=== PATIENT | male | born 1945 | race Caucasian/White ===

== ENCOUNTER 2019-03-04 21:03 | Inpatient (IN) ==
--- NOTE | 2019-03-04 23:12 | Internal Med History&Physical ---
Medical - H&P: [facility] Patient information: Note initiated : 03/04/19 at 11:09 pm Service Date, if different from initiated Date: [] Patient: Andre Vang 73 y/o M admitted on 03/04/19 for Hyperkalemia. Chief Complaint: [] Chief complaint: Elevated potassium, confusion History of present illness: Mr. Vang is a 73 year old M with history of end-stage renal disease on hemodialysis. [place] of [place] and during his office visit at primary care physician he was found to have potassium of 6.7. Patient subsequently transferred to [facility] where hyperkalemia protocol was initiated. Patient apparently missed his dialysis on Saturday citing that he was feeling well and did not think he would need dialysis. Initial work-up in the ER was consistent with elevated potassium along with blood pressure systolics in 200. Nephrology Dr. Keenan Laguna was consulted for emergent hemodialysis who recommended transferring patient to [facility] for hemodialysis. Patient was finally confused and underwent CT scan of the head which was unremarkable. Normal white count without any evidence of infection. Subsequently [facility] hospitalist was consulted for patient transfer in light of need for emergent hemodialysis. I received a verbal sign out from the ER physician at [place]. Patient was accepted and received in stable state. On arrival patient is alert oriented and able to answer most of the questions. He endorses history as above. He denies weight gain, chest palpitation, shortness of breath, fever, chills, headache or photophobia. He denies bloody stool or diarrhea. He denies changes in medications. Review of systems A 10 point review system was performed and is negative except was discussed above Medical - H&P: PMH Medical history: ESRD on hemodialysis History of congestive heart failure COPD coronary disease BPH Tobacco dependence Diabetes mellitus Hypertension Anxiety disorder Pertinent family history: Nonsignificant Social history: Lives out of [place] History of smoking No alcohol use Medical - H&P: Meds Home Medications Medication Instructions Recorded Confirmed Type Acetaminophen [Acetaminophen Extra 500 mg PO Q6H PRN 03/04/19 03/04/19 History Strength] B Complex W-C No.20/Folic Acid 1 mg PO DAILY 03/04/19 03/04/19 History [Renal Caps Softgel] Bisoprolol Fumarate 10 mg PO DAILY 03/04/19 03/04/19 History Cholecalciferol (Vitamin D3) 1,000 unit PO DAILY 03/04/19 03/04/19 History [Vitamin D] Clopidogrel Bisulfate [Plavix] 75 mg PO DAILY 03/04/19 03/04/19 History Docusate Sodium [Colace Clear] 50 mg PO BID 03/04/19 03/04/19 History Ipratropium/Albuterol [Duoneb] 3 ml NEB QID 03/04/19 03/04/19 History Metoclopramide [Reglan] 10 mg PO TIDAC 03/04/19 03/04/19 History Metoprolol Succinate [Toprol Xl] 100 mg PO DAILY 03/04/19 03/04/19 History Nebivolol HCl [Bystolic] 20 mg PO DAILY 03/04/19 03/04/19 History Nitroglycerin [Nitrostat] 0.4 mg SL Q5M PRN 03/04/19 03/04/19 History Omeprazole 40 mg PO DAILY 03/04/19 03/04/19 History Sertraline [Zoloft] 50 mg PO DAILY 03/04/19 03/04/19 History Sertraline [Zoloft] 100 mg PO DAILY 03/04/19 03/04/19 History Spironolactone [Aldactone] 25 mg PO DAILY 03/04/19 03/04/19 History Tamsulosin [Flomax] 0.4 mg PO HS 03/04/19 03/04/19 History Thioridazine HCl 25 mg PO BID 03/04/19 03/04/19 History Triamcinolone Cream 0.1% 15G 1 dose TOPICAL BID 03/04/19 03/04/19 History [Kenalog Crm 0.1%] Varenicline Tartrate [Chantix] 0.5 mg PO BID 03/04/19 03/04/19 History Varenicline Tartrate [Chantix] 1 mg PO BID 03/04/19 03/04/19 History Vitamin B Complex [Super B-50 1 each PO DAILY 03/04/19 03/04/19 History Complex] Zolpidem [Ambien] 10 mg PO HSP PRN 03/04/19 03/04/19 History tiZANidine HCL [Tizanidine HCl] 2 mg PO HS 03/04/19 03/04/19 History tiZANidine [Zanaflex] 4 mg PO HS 03/04/19 03/04/19 History Albuterol Sulfate [Albuterol 2 puff IH QIDP PRN 03/05/19 03/05/19 History Sulfate Hfa] Aspirin [Lalito Chewable Aspirin] 81 mg PO DAILY 03/05/19 03/05/19 History Atorvastatin Calcium 80 mg PO HS 03/05/19 03/05/19 History Budesonide/Formoterol Fumarate 10.2 gm IH BID 03/05/19 03/05/19 History [Symbicort 160-4.5 Mcg Inhaler] Calcium Acetate [Calphron] 667 mg PO TID 03/05/19 03/05/19 History Vit C/Vit E AC/Lut/Copper/Zinc 1 cap PO DAILY 03/05/19 03/05/19 History [Preservision Lutein Softgel] oxyCODONE HCL/ACETAMINOPHEN 1 each PO Q6HP PRN 03/05/19 03/05/19 History [Percocet 7.5-325 mg Tablet] Allergies Allergy/AdvReac Type Severity Reaction Status Date / Time No Known Drug Allergies Allergy Unverified 03/05/19 00:57 Medical - H&P: Exam - Constitutional General appearance: no acute distress Exam: Alert oriented Nonlabored breathing Head normocephalic neck no lymphadenopathy oral cavity dry No ear nose discharge Eye movement symmetrical Abdomen soft nontender S1-S2 regular rhythm diminished breath sounds bases, hemodialysis subclavian catheter right anterior chest Skin no suspicious lesion Psych alert cooperative Neuro nonfocal Medical - H&P: Reslt - Labs CBC & Chem 7: 03/05/19 04:45 03/05/19 04:45 Medical - H&P: A/P (1) Acute hyperkalemia Current visit: Yes Status: Acute * Acute hyperkalemia-potassium 6.7 status post hyperkalemia protocol. Nephrology consult for emergent hemodialysis * Hypertensive urgency with mental status change- likely exacerbated by volume overload. Will undergo emergent hemodialysis * ESRD on hemodialysis per nephrology * Acute change mental status secondary to hypertensive urgency-hemodialysis per nephrology * History of BPH continue tamsulosin * History of hypertension continue nebivolol/spironolactone/metoprolol * History of CAD continue aspirin/nitrate/nebivolol/Plavix/statin * History of COPD continue inhaled steroids * Anxiety disorder continue sertraline * GERD continue PPI * Full code * Prophylaxis heparin * Plan * Inpatient admission in light of hyperkalemia/hypertensive urgency with mental status change * emergent hemodialysis * Nephrology consult
[2019-03-04] MEDS ORDERED: ONDANSETRON 4 MG/2 ML VIAL IV PRN (23:19)
[2019-03-04] MEDS ORDERED: ACETAMINOPHEN 1,000 MG/100 ML BOTTLE IV PRN (23:19)
[2019-03-05] MEDS: 0.9 % SODIUM CHLORIDE 10 ML SYRINGE IV SCH ×3 (05:21→21:20)
[2019-03-05] MEDS ORDERED: ACETAMINOPHEN 325 MG TABLET PO ONE (05:25)
[2019-03-05] MEDS: ACETAMINOPHEN 325 MG TABLET PO PRN ×2 (05:26→19:59)
[2019-03-05 05:43] LABS: Hematocrit 36.5 % (41.0-55.0); Mean Cell Volume 88.9 fL (80.0-100.0); Mean Corpuscular HGB Conc 32.9 g/dL (31.0-36.0); Mean Platelet Volume 8.4 fL (7.4-10.4); Platelet Count 169 K/mcL (140-440); WBC 5.6 K/mcL (4.5-11.0)
[2019-03-05 07:13] LABS: ALT/SGPT 11 U/l (0-40); AST/SGOT 15 U/l (0-37); Albumin 4.2 gm/dL (3.2-5.2); Albumin/Globulin Ratio 1.9 (1.0-2.3); Alkaline Phosphatase 78 U/L (39-117); Bilirubin,Direct < 0.2 mg/dL (0.0-0.3); Bilirubin,Total 0.2 mg/dL (0.0-1.0); Blood Urea Nitrogen 23 mg/dl (8-23); Calcium 8.2 mg/dl (8.6-10.4); Carbon Dioxide 22 mmol/L (22-30); Chloride 99 mmol/L (96-108); Globulin 2.2 gm/dL (2.2-3.7); Glomerular Filtration Rate 26; Glucose 136 mg/dL (70-105); Lactate Dehydrogenase 248 U/L (94-250); Magnesium 1.9 mg/dL (1.6-2.5); Potassium 3.5 mmol/L (3.3-5.1); Sodium 138 mmol/L (133-145); Triglycerides 368 mg/dl (<150); Uric Acid 1.6 mg/dL (2.5-8.0)
[2019-03-05] MEDS ORDERED: NITROGLYCERIN 0.4 MG TAB.SUBL SL PRN (07:55)
[2019-03-05] MEDS ORDERED: ALBUTEROL SULFATE 1 PUFF INHALER IH PRN (07:55)
[2019-03-05] MEDS ORDERED: hydrALAZINE 20 MG/ML VIAL IV PRN ×2 (07:56→22:32)
[2019-03-05] MEDS ORDERED: oxyCODONE/APAP 5/325MG TABLET PO PRN (08:27)
[2019-03-05] MEDS: HEPARIN 5,000 UNIT/ML VIAL SQ SCH ×2 (08:35→20:50)
[2019-03-05] MEDS: ASPIRIN 81 MG TAB.CHEW PO SCH (08:35)
[2019-03-05] MEDS: CLOPIDOGREL 75 MG TABLET PO SCH (08:36)
[2019-03-05] MEDS: DOCUSATE SODIUM 100 MG CAPSULE PO SCH ×2 (08:36→21:19)
[2019-03-05] MEDS: MULTIVIT,THER IRON,CA,FA & MIN 1 TABLET PO SCH (08:36)
[2019-03-05] MEDS: SERTRALINE 50 MG TABLET PO SCH (08:51)
[2019-03-05] MEDS: PANTOPRAZOLE 40 MG TABLET PO SCH (08:51)
[2019-03-05] MEDS ORDERED: SPIRONOLACTONE 25 MG TABLET PO SCH (09:00)
[2019-03-05] MEDS ORDERED: DOCUSATE SODIUM 50 MG PO SCH (09:00)
[2019-03-05] MEDS: IPRATROPIUM/ALBUTEROL 3 ML AMPUL.NEB NEB SCH ×4 (09:10→21:18)
[2019-03-05] MEDS: BISOPROLOL 5 MG TABLET PO SCH (09:12)
[2019-03-05] MEDS: VITAMIN D3 1,000 UNIT TABLET PO SCH (09:12)
[2019-03-05] MEDS: VITAMIN B COMPLEX 1 CAPSULE PO SCH (09:12)
[2019-03-05] MEDS: VIT A,C & E/LUTEIN/MINERALS TABLET PO SCH (09:13)
[2019-03-05 09:31] LABS: Band Neutrophils % 1 % (0-10); Basophils % (Manual) 1 % (0-2); Eosinophils % (Manual) 3 % (0-7); Lymphocytes % 22 % (15-49); Monocytes % (Manual) 8 % (1-12); Platelet Estimate NORMAL (NORMAL); RBC Morphology ABNORM (NORMAL); Segmented Neutrophils % 65 % (38-78); Tear Drop Cells 1+ (NONE SEEN)
[2019-03-05] MEDS: Budesonide/Formoterol Fumarate [Symbicort 160-4.5 MCG] Inhaler INH SCH ×2 (09:52→21:20)
[2019-03-05] MEDS: VARENICLINE TARTRATE 1 MG TABLET PO SCH ×2 (09:52→21:18)
--- NOTE | 2019-03-05 09:54 | Internal Med Progress Note ---
Medical - PN: Subj Patient information: Note initiated : 03/05/19 at 9:51 am Service Date, if different from initiated Date: [] Patient: Andre Vang 73 y/o M admitted on 03/04/19 for Hyperkalemia. Chief Complaint: [] Interval history: Mr. Vang is a 73 year old M with history of end-stage renal disease on h emodialysis. Patient [place] of [place] and during his office visit at primary care physician he was found to have potassium of 6.7. Patient subsequently transferred to [facility] where hyperkalemia protocol was initiated. Patient apparently missed his dialysis on Saturday citing that he was feeling well and did not think he would need dialysis. Initial work-up in the ER was consistent with elevated potassium along with blood pressure systolics in 200. Nephrology Dr[address] Keenan Laguna was consulted for emergent hemodialysis who recommended transferring patient to [facility] for he modialysis. Patient was finally confused and underwent CT scan of the head which was unremarkable. Normal white count without any evidence of infection. Subsequently [facility] hospitalist was consulted for patient transfer in light of need for emergent hemodialysis. I received a verbal sign out from the ER physician at [place]. Patient was accepted and received in stable state. On arrival patient is alert oriented and able to answer most of the questions. He endorses history as above. He denies weight gain, chest palpitation, shortness of breath, fever, chills, headache or photophobia. He denies bloody stool or diarrhea. He denies changes in medications. 03/05-patient clinically better. Improved potassium/blood pressures postdialysis. Medication list currently being obtained. On as needed antihypertensives. No significant telemetry monitoring events. Slept well. Continue optimization of hypertension. Patient will likely discharge post hemodialysis in 24 hours. Nephrology on board - Constitutional Vitals: Vital Signs Temp Pulse Resp BP Pulse Ox 97.9 F 63 18 178/65 95 03/05/19 07:32 03/05/19 09:11 03/05/19 09:11 03/05/19 07:32 03/05/19 09:11 Period Temp Pulse Resp BP Sys/[place] Pulse Ox Last 24 Hr 97.4 F-97.9 F 54-63 11-26 134-207/64-86 94-97 Intake and Output 03/04/19 03/05/19 03/05/19 21:59 05:59 13:59 Intake Total 360 Output Total 200 Balance 160 Weight 142 lb Intake & Output: Intake & Output 03/04/19 03/05/19 03/05/19 21:59 05:59 13:59 Intake Total 360 Output Total 200 Balance 160 Weight 142 lb Intake: Oral 360 Output: Void Amount 200 Other: Meal Pb&J sandwich X2 Urine Color Dark Yellow General appearance: no acute distress Exam: Alert oriented Nonlabored breathing Subclavian dialysis catheter right anterior chest Abdomen soft nontender No telemetry events Medical - PN: Obj Da - Labs CBC & Chem 7: 03/05/19 04:45 03/05/19 04:45 Labs: Abnormal Lab Results 03/05/19 03/05/19 04:45 04:45 RBC 4.10 L Hgb 12.0 L Hct 36.5 L RBC Morphology Abnorm A Tear Drop Cells 1+ A Anion Gap 17.0 H Creatinine 2.4 H Glucose 136 H Uric Acid 1.6 L Calcium 8.2 L Triglycerides 368 H Meds: Medications Acetaminophen (Tylenol) 650 mg PO Q4-6HP PRN PRN Reason: PAIN/FEVER > 101 Last Admin: 03/05/19 05:26 Dose: 650 mg Documented by: Albuterol Sulfate (Ventolin) 2 puff IH QIDP PRN PRN Reason: Wheezing Albuterol/Ipratropium (Duoneb) 3 ml NEB QID [facility] Last Admin: 03/05/19 09:10 Dose: 3 ml Documented by: Aspirin (Aspirin) 81 mg PO DAILY [facility] Last Admin: 03/05/19 08:35 Dose: 81 mg Documented by: Atorvastatin Calcium (Lipitor) 80 mg PO [facility] Bisoprolol Fumarate (Zebeta) 10 mg PO DAILY [facility] Last Admin: 03/05/19 09:12 Dose: 10 mg Documented by: Calcium Acetate (Phoslo) 667 mg PO TIDCC [facility] Clopidogrel Bisulfate (Plavix) 75 mg PO DAILY [facility] Last Admin: 03/05/19 08:36 Dose: 75 mg Documented by: Docusate Sodium (Colace) 100 mg PO BID [facility] Last Admin: 03/05/19 08:36 Dose: 100 mg Documented by: Heparin Sodium (Porcine) (Heparin) 5,000 unit SQ Q12 [facility] Last Admin: 03/05/19 08:35 Dose: 5,000 unit Documented by: Hydralazine HCl (Apresoline) 10 mg IV Q4-6HP PRN PRN Reason: Hypertension Acetaminophen (Ofirmev) 1,000 mg in 100 mls @ 200 mls/hr IV Q6HP PRN PRN Reason: PAIN/FEVER > 101 Iron Carb/Multivit/Doerun/Folic Acid (Multivitamin W/Minerals) 1 tab PO DAILY [facility] Last Admin: 03/05/19 08:36 Dose: 1 tab Documented by: Metoclopramide HCl (Reglan) 5 mg PO BIDAC [facility] Multivitamins/Minerals (Ocuvite) 1 tab PO DAILY [facility] Last Admin: 03/05/19 09:13 Dose: 1 tab Documented by: Nitroglycerin (Nitrostat) 0.4 mg SL Q5M PRN PRN Reason: Chest Pain Ondansetron HCl (Zofran) 4 mg IV Q4-6HP PRN PRN Reason: Nausea And Vomiting Oxycodone/Acetaminophen (Percocet 5-325 Mg) 1 tab PO Q6HP PRN PRN Reason: Pain Pantoprazole Sodium (Protonix) 40 mg PO QAMAC [facility] Last Admin: 03/05/19 08:51 Dose: 40 mg Documented by: Budesonide/Formoterol Fumarate [Symbicort 160-4.5 Mcg] Inhaler 1 dose INH BID [facility] Thioridazine Hcl 25 (Mg Tablet) 1 dose PO BID [facility] Senna/Docusate Sodium (Senna Plus Tablet) 1 tab PO HS [facility] Sertraline HCl (Zoloft) 50 mg PO DAILY [facility] Last Admin: 03/05/19 08:51 Dose: 50 mg Documented by: Sodium Chloride (Saline Flush) 10 ml IV Q8 [facility] Last Admin: 03/05/19 05:21 Dose: 10 ml Documented by: Spironolactone (Aldactone) 25 mg PO DAILY [facility] Last Admin: 03/05/19 08:51 Dose: 25 mg Documented by: Tamsulosin HCl (Flomax) 0.4 mg PO HS [facility] Tizanidine HCl (Zanaflex) 2 mg PO HS [facility] Varenicline (Chantix) 0.5 mg PO BID [facility] Vitamin B Complex (Vitamin B Complex) 1 cap PO DAILY [facility] Last Admin: 03/05/19 09:12 Dose: 1 cap Documented by: Vitamin D (Vitamin D3) 1,000 unit PO DAILY [facility] Last Admin: 03/05/19 09:12 Dose: 1,000 unit Documented by: Medical - PN: A/P - Time Spent With Patient Total time spent is greater than 50% in coordination of care (as documented) at patient's floor/unit and/or counseling patient: 25 - 35 minutes (1) Acute hyperkalemia Status: Acute Assessment and plan: * Acute hyperkalemia-potassium 6.7 status post hyperkalemia protocol. Nephrology consult for emergent hemodialysis * Hypertensive urgency with mental status change- likely exacerbated by volume overload. Will undergo emergent hemodialysis * ESRD on hemodialysis per nephrology * Acute change mental status secondary to hypertensive urgency-hemodialysis per nephrology * History of BPH continue tamsulosin * History of hypertension continue nebivolol/spironolactone/metoprolol * History of CAD continue aspirin/nitrate/nebivolol/Plavix/statin * History of COPD continue inhaled steroids * Anxiety disorder continue sertraline * GERD continue PPI * Full code * Prophylaxis heparin Plan * Continue hemodialysis per nephrology * Optimize antihypertensives * Resume pre-existing health issue management and home meds * Discharge planning likely in 24 hours post hemodialysis on Saturday if patient stable Current Visit: Yes Medical - PN: Qual - Stroke Symptom Onset Unknown: No - VTE Deep Vein Thrombosis/Pulmonary Embolism Present on Admission: No
[2019-03-05] MEDS: CALCIUM ACETATE 667 MG CAPSULE PO SCH ×2 (11:56→17:46)
[2019-03-05] MEDS: METOCLOPRAMIDE 10 MG TABLET PO SCH ×2 (11:56→17:46)
--- NOTE | 2019-03-05 16:38 | Discharge Summary ---
Medical - DS: Prov Patient information: Note initiated : 03/06/19 at 8:36 am Service Date, if different from initiated Date: [] Patient: Andre Vang 73 y/o M admitted on 03/04/19 for Hyperkalemia. Chief Complaint: [] Date of admission: 03/04/19 22:59 Discharge date: 03/06/19 Primary care physician: Kristel Barroso Consults: 03/04/19 23:19 Consult to Physician [CONS] Routine Comment: Consulting Provider: Jon Laguna Reason For Exam: Physician to Consult Medical - DS: Meds - Discharge Medications Prescriptions: amLODIPine [Norvasc] 5 mg PO HS #30 tablet Active and Home Medications: Home Medications Acetaminophen [Acetaminophen Extra Strength] 500 mg PO Q6H PRN 03/04/19 [History Confirmed 03/04/19 Last Taken Unknown] B Complex W-C No.20/Folic Acid [Renal Caps Softgel] 1 mg PO DAILY 03/04/19 [History Confirmed 03/04/19 Last Taken Unknown] Bisoprolol Fumarate 10 mg PO DAILY 03/04/19 [History Confirmed 03/04/19 Last Ta tomas Unknown] Cholecalciferol (Vitamin D3) [Vitamin D] 1,000 unit PO DAILY 03/04/19 [History Confirmed 03/04/19 Last Taken Unknown] Clopidogrel Bisulfate [Plavix] 75 mg PO DAILY 03/04/19 [History Confirmed 03/04/19 Last Taken Unknown] Docusate Sodium [Colace Clear] 50 mg PO BID 03/04/19 [History Confirmed 03/04/19 Last Taken Unknown] Ipratropium/Albuterol [Duoneb] 3 ml NEB QID 03/04/19 [History Confirmed 03/04/19 Last Taken Unknown] Metoclopramide [Reglan] 10 mg PO TIDAC 03/04/19 [History Confirmed 03/04/19 Last Taken Unknown] Metoprolol Succinate [Toprol Xl] 100 mg PO DAILY 03/04/19 [History Confirmed 03/04/19 Last Taken Unknown] Nebivolol HCl [Bystolic] 20 mg PO DAILY 03/04/19 [History Confirmed 03/04/19 Last Taken Unknown] Nitroglycerin [Nitrostat] 0.4 mg SL Q5M PRN 03/04/19 [History Confirmed 03/04/19 Last Taken Unknown] Omeprazole 40 mg PO DAILY 03/04/19 [History Confirmed 03/04/19 Last Taken Unknown] Sertraline [Zoloft] 50 mg PO DAILY 03/04/19 [History Confirmed 03/04/19 Last Taken Unknown] Sertraline [Zoloft] 100 mg PO DAILY 03/04/19 [History Confirmed 03/04/19 Last Taken Unknown] Spironolactone [Aldactone] 25 mg PO DAILY 03/04/19 [History Confirmed 03/04/19 Last Taken Unknown] Tamsulosin [Flomax] 0.4 mg PO HS 03/04/19 [History Confirmed 03/04/19 Last Taken Unknown] Thioridazine HCl 25 mg PO BID 03/04/19 [History Confirmed 03/04/19 Last Taken Unknown] Triamcinolone Cream 0.1% 15G [Kenalog Crm 0.1%] 1 dose TOPICAL BID 03/04/19 [History Confirmed 03/04/19 Last Taken Unknown] Varenicline Tartrate [Chantix] 0.5 mg PO BID 03/04/19 [History Confirmed 03/04/19 Last Taken Unknown] Varenicline Tartrate [Chantix] 1 mg PO BID 03/04/19 [History Confirmed 03/04/19 Last Taken Unknown] Vitamin B Complex [Super B-50 Complex] 1 each PO DAILY 03/04/19 [History Confirmed 03/04/19 Last Taken Unknown] Zolpidem [Ambien] 10 mg PO HSP PRN 03/04/19 [History Confirmed 03/04/19 Last Taken Unknown] tiZANidine HCL [Tizanidine HCl] 2 mg PO HS 03/04/19 [History Confirmed 03/04/19 Last Taken Unknown] tiZANidine [Zanaflex] 4 mg PO HS 03/04/19 [History Confirmed 03/04/19 Last Taken Unknown] Albuterol Sulfate [Albuterol Sulfate Hfa] 2 puff IH QIDP PRN 03/05/19 [History Confirmed 03/05/19 Last Taken Unknown] Aspirin [Lalito Chewable Aspirin] 81 mg PO DAILY 03/05/19 [History Confirmed 03/05/19 Last Taken Unknown] Atorvastatin Calcium 80 mg PO HS 03/05/19 [History Confirmed 03/05/19 Last Taken Unknown] Budesonide/Formoterol Fumarate [Symbicort 160-4.5 Mcg Inhaler] 10.2 gm IH BID 03/05/19 [History Confirmed 03/05/19 Last Taken Unknown] Calcium Acetate [Calphron] 667 mg PO TID 03/05/19 [History Confirmed 03/05/19 Last Taken Unknown] Vit C/Vit E AC/Lut/Copper/Zinc [Preservision Lutein Softgel] 1 cap PO DAILY 03/05/19 [History Confirmed 03/05/19 Last Taken Unknown] oxyCODONE HCL/ACETAMINOPHEN [Percocet 7.5-325 mg Tablet] 1 each PO Q6HP PRN 03/05/19 [History Confirmed 03/05/19 Last Taken Unknown] Medical - DS: Hosp Hospital course: Discharge diagnosis * Acute hyperkalemia-resolved with hemodialysis. Potassium normalized from 6.7 . Discharging with advise to continue hemodialysis as outpatient * Hypertensive urgency with mental status change-clinically improved. Likely exacerbated by volume overload. * Acute change mental status secondary to hypertensive urgency-clinically back to baseline * History of BPH continue tamsulosin * History of hypertension continue home medications * History of CAD continue aspirin/nitrate/beta-aaron/Plavix/statin * History of COPD continue inhaled steroids * Anxiety disorder continue sertraline * GERD continue PPI Brief hospital course Mr. Vang is a 73 year old M with history of end-stage renal disease on hemodialysis. Patient [place] of [place] and during his office visit at primary care physician he was found to have potassium of 6.7. Patient subsequently transferred to [facility] where hyperkalemia protocol was initiated. Patient apparently missed his dialysis on Saturday citing that he was feeling well and did not think he would need dialysis. Initial work-up in the ER was consistent with elevated potassium along with blood pressure systolics in 200. Nephrology Dr. Keenan Laguna was consulted for emergent hemodialysis who recommended transferring patient to [facility] for hemodialysis. Patient was finally confused and underwent CT scan of the head which was unremarkable. Normal white count without any evidence of infection. Subsequently [facility] hospitalist was consulted for patient transfer in light of need for emergent hemodialysis. I received a verbal sign out from the ER physician at [place]. Patient was accepted and received in stable state. On arrival patient is alert oriented and able to answer most of the questions. He endorses history as above. He denies weight gain, chest palpitation, shortness of breath, fever, chills, headache or photophobia. He denies bloody stool or diarrhea. He denies changes in medications. 03/05-patient clinically better. Improved potassium/blood pressures postdialysis. Medication list currently being obtained. On as needed antihypertensives. No significant telemetry monitoring events. Slept well. Continue optimization of hypertension. Patient will likely discharge post hemodialysis in 24 hours. Nephrology on board 03/06-patient discharging today. Will require follow-up with nephrology for optimization of hypertension management. Currently on bisoprolol/spironolactone/amlodipine with systolics around 150. Will undergo hemodialysis today as outpatient and Dr. Laguna's dialysis center. Mentation at baseline. Electrolytes normalized. Detailed discharge instructions below. Recommend avoiding missing hemodialysis sessions to prevent life-threatening hyperkalemia/electrolytes disturbances. Discharge diagnosis: . - Time Spent with Patient Total time spent providing and/or coordinating discharge services: Greater than 30 minutes Medical - DS: Exam - Constitutional Vitals: Vital Signs Temp Pulse Pulse Resp BP BP Pulse Ox 03/05/19 13:26 58 L 14 94 03/05/19 11:52 98.6 F 20 147/77 98 03/05/19 09:11 63 18 95 03/05/19 08:00 63 03/05/19 07:32 97.9 F 13 178/65 97 03/05/19 04:07 97.4 F 62 134/73 03/05/19 03:52 97.4 F 58 L 14 97 03/05/19 03:47 59 L 13 157/72 96 03/05/19 03:43 60 157/72 03/05/19 03:32 59 L 14 154/73 96 03/05/19 03:28 59 L 154/73 03/05/19 03:17 58 L 16 158/70 97 03/05/19 03:13 57 L 158/70 03/05/19 03:01 60 15 145/68 97 03/05/19 02:58 58 L 145/68 03/05/19 02:47 58 L 26 H 149/68 97 03/05/19 02:43 57 L 149/68 03/05/19 02:32 57 L 13 155/69 97 03/05/19 02:27 57 L 155/69 03/05/19 02:17 58 L 14 160/70 97 03/05/19 02:15 60 160/70 03/05/19 02:02 56 L 15 153/75 97 03/05/19 01:55 57 L 153/75 03/05/19 01:47 55 L 15 160/70 97 03/05/19 01:40 57 L 160/70 03/05/19 01:31 56 L 13 162/86 97 03/05/19 01:24 57 L 162/86 03/05/19 01:08 55 L 12 172/66 96 03/05/19 01:07 54 L 172/66 03/05/19 01:02 57 L 14 173/66 95 03/05/19 00:41 59 L 14 95 03/05/19 00:32 59 L 13 172/64 94 03/05/19 00:02 97.9 F 61 14 182/69 96 03/04/19 23:47 59 L 11 L 175/65 94 03/04/19 23:45 60 12 200/68 95 03/04/19 23:19 97.7 F 63 21 207/82 97 Intake and Output 03/05/19 03/05/19 03/05/19 05:59 13:59 21:59 Intake Total 360 240 200 Output Total 200 200 225 Balance 160 40 -25 Intake: Oral 360 240 200 Output: Void Amount 200 200 225 Other: Meal Pb&J sandwich X2 Lunch Percent of Meal Consumed 100% Urine Color Dark Yellow Weight 142 lb 142 lb Patient Weight 03/06/19 05:59 Weight 142 lb Medical - DS: Data Labs on day of discharge: Labs from last 24 hours 03/05/19 03/05/19 04:45 04:45 WBC 5.6 RBC 4.10 L Hgb 12.0 L Hct 36.5 L MCV 88.9 MCH 29.3 MCHC 32.9 RDW 14.0 Plt Count 169 MPV 8.4 Total Counted 100 Seg Neutrophils % 65 Band Neutrophils % 1 Lymphocytes % 22 Monocytes % (Manual) 8 Eosinophils % (Manual) 3 Basophils % (Manual) 1 Platelet Estimate Normal RBC Morphology Abnorm A Tear Drop Cells 1+ A Sodium 138 Potassium 3.5 Chloride 99 Carbon Dioxide 22 Anion Gap 17.0 H BUN 23 Creatinine 2.4 H GFR Calculation 26 Glucose 136 H Uric Acid 1.6 L Calcium 8.2 L Phosphorus 3.0 Magnesium 1.9 Total Bilirubin 0.2 Direct Bilirubin < 0.2 GGT 44 AST 15 ALT 11 Alkaline Phosphatase 78 Lactate Dehydrogenase 248 Total Protein 6.4 Albumin 4.2 Globulin 2.2 Albumin/Globulin Ratio 1.9 Triglycerides 368 H Medical - DS: A/P - Patient/Caregiver Discharge Instructions Activity: as per physical therapy Diet: Renal/Consistent Carbs Additional Instructions: Follow-up PCP in 5 days Continue antihypertensive medication optimization as per nephrology. Follow-up with nephrology for hemodialysis later today Continue aggressive bowel regimen to prevent constipation Continue fall precautions All meals on chair sitting upright at 90 degrees to prevent aspiration Return to ER if worsening fever chills shortness of breath, diarrhea, bleeding Refrain from smoking and alcohol Continue diet and activity as advised Discussed importance of medication adherence Please review medication list with patient prior to discharge Please schedule follow-up with PCP/Providers prior to discharge and provide printouts Prescriptions: amLODIPine [Norvasc] 5 mg PO HS #30 tablet - Problem Maintenance (1) Acute hyperkalemia Status: Acute - Follow up Plan Follow up with: Aaron Trammell MD [Referring] - 03/12/19 10:15 am Jon Laguna MD [Physician] - (Continue with your current dialysis schedule in the clinic.) Disposition: Home, Self-Care Prognosis: Fair Rehab Potential: Fair I certify that the patient requires SNF services: No Overall status at discharge: patient is back to baseline Medical - DS: Qual - VTE Deep Vein Thrombosis/Pulmonary Embolism Present on Admission: No
[2019-03-05] MEDS ORDERED: ATORVASTATIN 20 MG TABLET PO SCH (21:00)
[2019-03-05] MEDS ORDERED: tiZANidine 4 MG TABLET PO SCH (21:00)
[2019-03-05] MEDS ORDERED: TAMSULOSIN 0.4 MG CAPSULE PO SCH (21:00)
[2019-03-05] MEDS ORDERED: amLODIPine 5 MG TABLET PO SCH (21:00)
[2019-03-05] MEDS ORDERED: SENNOSIDES/DOCUSATE SODIUM 1 TAB TABLET PO SCH (21:00)
[2019-03-05] MEDS ORDERED: hydrALAZINE 20 MG/ML VIAL ONE (23:17)
[2019-03-05] MEDS ORDERED: amLODIPine 5 MG TABLET ONE (23:17)
[2019-03-06] MEDS: ACETAMINOPHEN 325 MG TABLET PO PRN ×2 (00:46→10:34)
[2019-03-06] MEDS: 0.9 % SODIUM CHLORIDE 10 ML SYRINGE IV SCH (05:42)
[2019-03-06 05:51] LABS: ALT/SGPT 9 U/l (0-40); AST/SGOT 19 U/l (0-37); Albumin/Globulin Ratio 1.7 (1.0-2.3); Alkaline Phosphatase 80 U/L (39-117); Bilirubin,Direct < 0.2 mg/dL (0.0-0.3); Bilirubin,Total 0.2 mg/dL (0.0-1.0); Blood Urea Nitrogen 48 mg/dl (8-23); Calcium 8.4 mg/dl (8.6-10.4); Carbon Dioxide 18 mmol/L (22-30); Chloride 102 mmol/L (96-108); Globulin 2.3 gm/dL (2.2-3.7); Glomerular Filtration Rate 11; Glucose 152 mg/dL (70-105); Lactate Dehydrogenase 341 U/L (94-250); Magnesium 2.2 mg/dL (1.6-2.5); Phosphorous 3.5 mg/dL (2.7-4.5); Potassium 4.9 mmol/L (3.3-5.1); Sodium 137 mmol/L (133-145); Triglycerides 183 mg/dl (<150); Uric Acid 3.3 mg/dL (2.5-8.0)
[2019-03-06] MEDS: METOCLOPRAMIDE 10 MG TABLET PO SCH (07:06)
--- NOTE | 2019-03-06 07:07 | XRay Report ---
CLINICAL INFORMATION: SOb COMPARISON: 02/18/2014 FINDINGS: Right IJ double-lumen catheter tip overlies the right atrium. Cardiomediastinal silhouette and pulmonary vessels are unremarkable. Lungs are clear. No effusions IMPRESSION: Negative Interpreted and Authenticated by: Rutsy Gray 03/06/19
[2019-03-06] MEDS: PANTOPRAZOLE 40 MG TABLET PO SCH (07:08)
[2019-03-06] MEDS: CALCIUM ACETATE 667 MG CAPSULE PO SCH (07:55)
[2019-03-06 08:33] LABS: Hematocrit 40.5 % (41.0-55.0); Mean Cell Volume 91.8 fL (80.0-100.0); Mean Corpuscular HGB Conc 32.2 g/dL (31.0-36.0); Mean Platelet Volume 8.9 fL (7.4-10.4); Platelet Count 190 K/mcL (140-440); RBC 4.41 M/mcL (4.50-5.90); Red Cell Distribution Width 14.6 % (11.5-14.5); WBC 12.1 K/mcL (4.5-11.0)
[2019-03-06] MEDS: VIT A,C & E/LUTEIN/MINERALS TABLET PO SCH (08:39)
[2019-03-06] MEDS: VITAMIN B COMPLEX 1 CAPSULE PO SCH (08:39)
[2019-03-06] MEDS: VITAMIN D3 1,000 UNIT TABLET PO SCH (08:39)
[2019-03-06] MEDS: ASPIRIN 81 MG TAB.CHEW PO SCH (08:39)
[2019-03-06] MEDS: DOCUSATE SODIUM 100 MG CAPSULE PO SCH (08:40)
[2019-03-06] MEDS: SERTRALINE 50 MG TABLET PO SCH (08:40)
[2019-03-06] MEDS: CLOPIDOGREL 75 MG TABLET PO SCH (08:40)
[2019-03-06] MEDS: BISOPROLOL 5 MG TABLET PO SCH (08:40)
[2019-03-06] MEDS: MULTIVIT,THER IRON,CA,FA & MIN 1 TABLET PO SCH (08:40)
[2019-03-06] MEDS: HEPARIN 5,000 UNIT/ML VIAL SQ SCH (08:41)
[2019-03-06] MEDS: VARENICLINE TARTRATE 1 MG TABLET PO SCH (08:57)
[2019-03-06] MEDS: Budesonide/Formoterol Fumarate [Symbicort 160-4.5 MCG] Inhaler INH SCH (08:57)
[2019-03-06] MEDS ORDERED: SPIRONOLACTONE 25 MG TABLET PO SCH (09:00)
[2019-03-06] MEDS: IPRATROPIUM/ALBUTEROL 3 ML AMPUL.NEB NEB SCH (09:12)
[2019-03-06 09:18] LABS: Band Neutrophils % 3 % (0-10); Eosinophils % (Manual) 2 % (0-7); Lymphocytes % 20 % (15-49); Monocytes % (Manual) 8 % (1-12); Platelet Estimate NORMAL (NORMAL); RBC Morphology NORMAL (NORMAL); Segmented Neutrophils % 67 % (38-78)
--- NOTE | 2019-03-06 11:41 | Nephrology Progress Note ---
Subjective Patient information: Note initiated : 03/05/19 at 11:38 am Service Date, if different from initiated Date: [] Patient: Andre Vang 73 y/o M admitted on 03/04/19 for Hyperkalemia. Chief Complaint: Weakness and hyperkalemia. He had dialysis last night and is feeling better. Denies any shortness of breath. Objective - Vital Signs Vital signs: Vital Signs Temp Pulse Pulse Resp BP BP Pulse Ox 03/06/19 10:34 98.1 F 03/06/19 09:16 85 16 95 03/06/19 08:00 98.1 F 68 20 154/72 95 03/06/19 07:45 154/72 03/06/19 06:58 98.1 F 26 H 190/84 95 03/06/19 03:43 97.9 F 68 16 156/72 95 03/06/19 00:43 141/70 03/05/19 23:15 98.2 F 69 16 172/76 92 03/05/19 21:20 65 14 03/05/19 20:48 62 178/75 03/05/19 19:26 97.3 F 62 17 174/88 96 03/05/19 18:39 20 03/05/19 18:34 63 19 174/68 96 03/05/19 18:02 17 121/105 03/05/19 17:23 18 161/73 03/05/19 17:02 14 186/73 03/05/19 16:02 58 L 16 173/63 97 03/05/19 15:02 17 174/83 03/05/19 14:01 60 14 177/72 95 03/05/19 14:00 63 03/05/19 13:26 58 L 14 94 03/05/19 13:01 15 175/71 03/05/19 12:01 22 165/98 03/05/19 11:52 98.6 F 20 147/77 98 Intake and Output 03/05/19 03/06/19 03/06/19 21:59 05:59 13:59 Intake Total 200 60 240 Output Total 225 225 100 Balance -25 -165 140 Intake: Oral 200 60 240 Output: Void Amount 225 225 100 # of times incontinent of urine 0 Other: Meal Nourishment/Supplement Breakfast Percent of Meal Consumed 100% Feeding Ability Independent Independent Nourishment/Supplement name peanut butter and diet jelly sandwich Urine Appearance Clear Clear Urine Color Bright Yellow Dark Yellow Urine Odor Normal Stool Size Smear Stool Color Brown Stool Consistency Normal for Patient # Voids 1 0 # Bowel Movements 1 Weight 140 lb 8 oz Intake & Output: Intake & Output 03/05/19 03/06/19 03/06/19 21:59 05:59 13:59 Intake Total 200 60 240 Output Total 225 225 100 Balance -25 -165 140 Weight 140 lb 8 oz Intake: Oral 200 60 240 Output: Void Amount 225 225 100 # of times incontinent of urine 0 Other: Meal Nourishment/Supplement Breakfast Percent of Meal Consumed 100% Feeding Ability Independent Independent Nourishment/Supplement name peanut butter and diet jelly sandwich Urine Appearance Clear Clear Urine Color Bright Yellow Dark Yellow Urine Odor Normal Stool Size Smear Stool Color Brown Stool Consistency Normal for Patient # Voids 1 0 # Bowel Movements 1 - General Appearance General appearance: appears started age, cachectic EENT: ATNC Neck: no JVD Respiratory: no kyphosis Cardiology: no murmurs Gastrointestinal: normoactive bowel sounds Integumentary: no rash Neurologic: no focal deficit Musculoskeletal: no deformities - Lab 03/06/19 06:44 03/06/19 04:20 Most recent lab results Calcium 8.4 mg/dl (8.6-10.4) L 03/06/19 04:20 Phosphorus 3.5 mg/dL (2.7-4.5) 03/06/19 04:20 Magnesium 2.2 mg/dL (1.6-2.5) 03/06/19 04:20 Assessment and Plan - Narrative A/P Narrative: He missed his regular dialysis and presented to ED with confusion and hyperkalemia. He was treated with HD. Feeling a lot better. Plan is to discharge him in the morning to go to his regular dialysis treatment as outpatient.
== END 2019-03-06 12:15 | disposition home or self-care (01) | DRG 640 ==
LOC: ICU 22:59 → MEDSUR 03-05 18:46
PROVIDERS: ADMIT Internal Medicine; ATTEND Internal Medicine